=== PATIENT | male | born 1965 | race Caucasian/White ===

== ENCOUNTER 2022-12-30 04:32 | Day surgery (SDC) | payer OTHER ==
[2022-12-24 12:03] VITALS: BMI 36.6
[2022-12-30 10:52] VITALS: TEMP 97.8
[2022-12-30 14:26] VITALS: BP 107/58; PULSE 74; RESP 20
== END 2022-12-30 12:50 | disposition home or self-care (01) ==
LOC: JASU-ENDO 04:32
PROVIDERS: ATTEND Internal Medicine Gastroenterology
PROC: 0DBN8ZX Excision of Sigmoid Colon, Via Natural or Artificial Opening Endoscopic, Diagnostic (ICD-10-PCS; 2022-12-30)
PROC: 0DBL8ZX Excision of Transverse Colon, Via Natural or Artificial Opening Endoscopic, Diagnostic (ICD-10-PCS; principal; 2022-12-30 10:45)
DX: Z12.11 Encounter for screening for malignant neoplasm of colon (principal); D12.3 Benign neoplasm of transverse colon; D12.5 Benign neoplasm of sigmoid colon; K57.30 Diverticulosis of large intestine without perforation or abscess without bleeding; K64.8 Other hemorrhoids
CPT/HCPCS: 88305-TC